=== PATIENT | female | born 2000 | race Caucasian/White ===

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

== ENCOUNTER 2022-03-23 09:48 | Emergency (ER) | payer OTHER, SELFPAY ==
--- NOTE | ~2022-03-23 | CT_ITS ---
EXAMINATION: CT abdomen pelvis w con INDICATION: Diffuse abdominal pain TECHNIQUE: Computed tomographic images of the abdomen and pelvis were obtained after the administrati on of 100 cc of Omnipaque 350 intravenous contrast. The dose-length product (DLP) was 526.56 mGy-cm. Automated exposure control and iterative reconstruction technique were employed. COMPARISON: 10/27/2018 FINDINGS: The lung bases are clear. The heart size is normal. The liver, spleen, pancreas, gallbladde r, and adrenal glands are normal. The kidneys are unremarkable. No pathologically enlarged abdominal or pelvic lymph nodes are identified. There is no free intraperitoneal gas or evidence of bowel obstr uction. IMPRESSION: 1. No CT correlate for the patient's symptoms. Reviewed, dictated and finalized at location A.
[2022-03-23 09:55] VITALS: BP 146/92; PULSE 104; RESP 105; TEMP 36.9; O2SAT 100
[2022-03-23 10:18] LABS: Basophils Absolute Auto 0.1 K/mm3 (0.0-0.1); Basophils Percent Auto 0.8 % (0.2-1.2); Eosinophils Absolute Auto 0.7 K/mm3 (0-0.3); Eosinophils Percent Auto 5.6 % (0-4.4); Hematocrit 42.4 % (37.0-47.0); Hemoglobin 13.9 g/dL (12.0-15.0); Immature Granulocyte Absolute 0.12 K/mm3 (0.00-0.031); Immature Granulocyte Percent A 0.9 % (0-0.5); Lymphocytes Absolute Auto 2.01 K/mm3 (0.9-3.2); Lymphocytes Percent Auto 15.6 % (18.3-44.2); Mean Corpuscular HGB Conc 32.8 g/dl (32-36); Mean Corpuscular Volume 88.3 fl (80-100); Mean Platelet Volume 8.6 fl (7.4-10.4); Monocytes Absolute Auto 1.5 K/mm3 (0.1-0.6); Monocytes Percent Auto 11.7 % (2.6-8.5); Neutrophils Absolute Auto 8.4 K/mm3 (1.3-6.7); Neutrophils Percent Auto 65.4 % (45.5-73.1); Platelet Count Result 371 k/mm3 (150-375); Red Cell Distribution Width 12.6 % (11.5-14.5); White Blood Count 12.9 K/mm3 (4.5-10.0)
[2022-03-23 10:19] LABS: Appearance Urine Clear (Clear); Bilirubin Urine Negative (Negative); Blood Urine 1+ (Negative); Glucose Urine UA Negative (Negative); Ketones Urine Negative (Negative); Leukocyte Esterase Ur Negative LEU/UL (Negative); Nitrate Urine Negative (Negative); Protein Urine Negative (Negative); Specific Grav Ur 1.015 (1.001-1.035); Urobilinogen Urine 0.2 mg/dL (<2.0); pH Urine 5.5 (5.0-9.0)
[2022-03-23 10:23] LABS: Add Urine Microscopic? YES; Color Urine Light Yellow (Yellow)
[2022-03-23 10:32] LABS: Bacteria Urine Trace /hpf; Mucus Urine Rare /lpf; Squamous Epithelial Cell Urine Few /hpf (Few); WBC Urine 0-3 /hpf
[2022-03-23 10:44] LABS: Alanine Aminotransferase 27 U/L (6-35); Albumin Level 4.5 g/dL (3.5-5.1); Alkaline Phosphatase 49 U/L (38-126); Anion Gap 14 mmol/L (8-16); Aspartate Amino Transferase 25 U/L (14-36); Bilirubin,Total 0.3 mg/dL (0.2-1.3); Blood Urea Nitrogen 10 mg/dL (7-17); Calcium 8.9 mg/dL (8.4-10.2); Carbon Dioxide 23 mmol/L (22-30); Chloride 103 mmol/L (98-107); Estimated CRCL calculation 109 ml/min; Estimated Glomerular Filt Rate > 60; Glucose 97 mg/dL (65-110); Lipase 20 U/L (23-300); Potassium 4.5 mmol/L (3.4-5.0); Sodium 140 mmol/L (137-145)
--- NOTE | 2022-03-23 10:56 | ED.ABDPAIN ---
HPI - Abdominal Pain General Chief Complaint: Abdominal Pain Stated Complaint: abd pain Time Seen by Provider: 03/23/22 10:17 History of Present Illness HPI narrative: 21-year-old female presents the emergency room for evaluation of diffuse abdominal pain that radiates into both flanks. Patient describes the pain as bloating and is associated with nausea. Patient has chronic back pain, she states this makes it difficult for her to sit down and go to the restroom. Admits to frequent constipation, which she has been taking a half a teaspoon of MiraLAX for daily for the past few days. Patient admits to frequent small bowel movements that are nonmelanotic and no diarrhea. Related Data Home Medications Medication Instructions Recorded Confirmed omeprazole 20 mg tablet,delayed 20 mg PO DAILY 12/08/19 03/18/22 release ondansetron 4 mg disintegrating 12/08/19 03/18/22 tablet sulfamethoxazole 800 12/08/19 03/18/22 mg-trimethoprim 160 mg tablet Allergies Allergy/AdvReac Type Severity Reaction Status Date / Time No Known Allergies Allergy Verified 03/23/22 09:58 Review of Systems Review of Systems: CONSTITUTIONAL: Denies fever, chills, or sweats. EYES: Denies visual changes, redness, or discharge. ENT: Denies rhinorrhea, congestion, sore throat, or otalgia. CARDIOVASCULAR: Denies chest pain, palpitations, or edema. RESPIRATORY: Denies cough or dyspnea. GASTROINTESTINAL: Reports abdominal pain, nausea GENITOURINARY: Denies dysuria or hematuria. SKIN: Denies rash or itching. MUSCULOSKELETAL: Denies back pain, joint pain, or myalgia. NEUROLOGIC: Denies headache, numbness, dizziness, or weakness. PSYCHIATRIC: Denies anxiety or depression. [facility] Past Medical History Medical History History of depression History of gastroesophageal reflux (GERD) Surgical History Surgical History History of lumbosacral spine surgery 2017 - herniated disc History of orthopedic surgery Social History Social History Smoking status: Current every day smoker Substance use type: marijuana Gender identity (if verbalized by the patient): Female Exam Narrative: GENERAL: Well-appearing, well-nourished, no physical limitations, and in no acute distress. HEAD: Normocephalic, atraumatic. EYES: Conjunctivae normal, PERRLA and EOMI. CHEST: Clear to auscultation. No respiratory distress. No wheezes rales or rhonchi. HEART: Regular rate and rhythm. No murmur heard. Normal peripheral pulses. ABDOMEN: Soft, diffuse tenderness, nondistended, normal active bowel sounds. BACK: No CVA tenderness; No cervical/thoracic/lumbar tenderness, step-offs, bony abnormality; FROM EXTREMITIES: Normal range of motion. No edema. No clubbing or cyanosis SKIN: Warm, dry, no rash. No noted wounds NEURO: No focal deficits. Alert and oriented x3. MAEW. CN's II-XI intact bilaterally, normal gait PSYCH: Cooperative. Normal mood and affect. Course Vital Signs Vital signs: Vital Signs Temperature 36.9 C 03/23/22 09:55 Pulse Rate 104 H 03/23/22 09:55 Respiratory Rate 105 H 03/23/22 09:55 Blood Pressure 146/92 H 03/23/22 09:55 Pulse Oximetry 100 03/23/22 09:55 Oxygen Delivery Room Air 03/23/22 09:55 Temperature 36.9 C 03/23/22 09:55 Pulse Rate 104 H 03/23/22 09:55 Respiratory Rate 105 H 03/23/22 09:55 Blood Pressure 146/92 H 03/23/22 09:55 Pulse Oximetry 100 03/23/22 09:55 Oxygen Delivery Room Air 03/23/22 09:55 MDM - Abdominal Pain MDM Narrative Medical decision making narrative: 21-year-old female presented emergency room with multiple complaints. Patient is complaining of low back pain, that is chronic. This is preventing her from sitting and standing with. Patient states that she is not wanting to sit down to go to the restroom because of t
[2022-03-23] MEDS: ONDANSETRON INJ 4 MG/2 ML VIAL IV PUSH (10:59)
[2022-03-23] MEDS: SODIUM CHLORIDE 0.9% IV 1,000 ML 999 ML IV CONT (10:59)
[2022-03-23 12:54] VITALS: BP 165/80; PULSE 95; RESP 18; O2SAT 100
[2022-03-23 13:16] LABS: Thyroid Stimulating Hormone 0.877 uIU/mL (0.465-4.680)
== END 2022-03-23 12:55 | disposition home or self-care (01) ==
PROVIDERS: Emergency Provider Nurse Practitioner Family; PCP Family Medicine Adolescent Medicine
DX: K59.00 Constipation, unspecified (principal); M54.50 Low back pain, unspecified; G89.29 Other chronic pain; K21.9 Gastro-esophageal reflux disease without esophagitis; F17.200 Nicotine dependence, unspecified, uncomplicated
CPT/HCPCS: 36415; 74177; 80053; 81001; 81025; 83690; 84443; 85025; 96361; 96374; 99284; J2405; J7030; Q9967

== ENCOUNTER → 2022-03-30 09:08 | Outpatient (CLI) | payer OTHER, SELFPAY ==
--- NOTE | ~2022-03-30 | MR_ITS ---
EXAMINATION: MR lumbar spine wo con DATE: 03/30/2022 10:00 INDICATION: Back pain. TECHNIQUE: Magnetic resonance imaging (MRI) of the lumbar spine was performed without intravenous con trast. Sequences included sagittal T2-weighted FSE, sagittal T2-weighted FS FSE, sagittal T1-weighted FSE, and axial T2-weighted FSE. COMPARISON: Lumbar spine MRI 02/21/17 FINDINGS: Bone alignment is normal. There is mild chronic anterior wedging of T11 and T12 vertebral b odies. There is mildly decreased disc height at L4-L5. The distal spinal cord signal intensity is nor mal. The conus medullaris is at T12. The following disc levels are specifically discussed: L1-L2: The disc does not extend beyond the endplate margin. There is no facet joint osteoarthritis. T here is no neural foraminal stenosis. There is no central canal stenosis. L2-L3: The disc does not extend beyond the endplate margin. There is no facet joint osteoarthritis. T here is no neural foraminal stenosis. There is no central canal stenosis. L3-L4: The disc does not extend beyond the endplate margin. There is severe right and moderate left f acet joint osteoarthritis. There is no neural foraminal stenosis. There is no central canal stenosis. There are changes of posterior decompression. L4-L5: The disc is bulging with superimposed right central extrusion. There is mild right facet joint osteoarthritis. There is mild bilateral neural foraminal stenosis. There is mild central canal steno sis. There are changes of posterior decompression. L5-S1: There is a left foraminal protrusion with annular fissure. There is mild bilateral facet joint osteoarthritis. There is mild left neural foraminal stenosis. There is no central canal stenosis. IMPRESSION: 1. Mild lumbar spondylosis, improved from 02/21/2017. Reviewed, dictated and finalized at location A.
== END ==
PROVIDERS: PCP Physician Assistant; Visit Provider Physician Assistant
DX: M47.896 Other spondylosis, lumbar region (principal)
CPT/HCPCS: 72148

== ENCOUNTER 2022-06-12 11:34 | Outpatient (CLI) | payer OTHER, SELFPAY ==
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
== END 2022-06-12 11:35 ==
PROVIDERS: PCP Family Medicine Adolescent Medicine; Visit Provider Physician Assistant
DX: M25.562 Pain in left knee (principal)
CPT/HCPCS: 73721

== ENCOUNTER 2022-09-08 06:14 | Emergency (ER) | payer BC, SELFPAY ==
[2022-09-08] VITALS (19 sets, daily range): BP systolic 130–168; BP diastolic 70–123; PULSE 64–101; RESP 11–33; TEMP 36.5; O2SAT 98–100
--- NOTE | ~2022-09-08 | CT_ITS ---
EXAMINATION: CTA chest PE protocol DATE: 09/08/2022 09:33 INDICATION: Shortness of breath. TECHNIQUE: Computed tomography angiography (CTA) of the chest was performed with 100 mL Omnipaque-350 intravenous contrast timed to evaluate the pulmonary arteries. Coronal maximum intensity projection 3D-reconstructions were created by the technologist. Automated exposure control and iterative reconst ruction technique were employed. The dose-length product was 459.32 mGy-cm. COMPARISON: CT abdomen pelvis 03/23/2022 FINDINGS: The lungs demonstrate mild atelectasis. No pleural effusion. The heart size is normal. No p ericardial effusion. There is no pulmonary embolus. There is thoracic dextrocurvature and mild spondy losis. IMPRESSION: 1. No pulmonary embolus. Reviewed, dictated and finalized at location A. IMPRESSION: 1. No pulmonary embolus.
--- NOTE | ~2022-09-08 | US_ITS ---
Limited Abdominal Sonogram: Real-time sonographic imaging of the right upper quadrant was performed. Clinical History: Right upper quadrant pain Findings: The liver appears normal with no evidence of mass lesion or bile duct dilatation. Main por asha vein demonstrates normal direction of flow. The gallbladder is well distended, and appears normal with no evidence of gallstone or wall thickening. The common bile duct measures 4 mm. The visualize d pancreas, aorta, and IVC are unremarkable. Impression: No significant abnormality seen. Reviewed, dictated and finalized at location M. Impression: No significant abnormality seen.
--- NOTE | 2022-09-08 06:45 | PC.NURSE ---
pt c/o r sided back/flank pain that radiates under r breast x 5 days but worse today. states pain is worse with deep breath and movement. states she smoked weed to relief the pain but it didn't work. denies any problems with urination or n/v. denies sob
[2022-09-08 07:27] LABS: Appearance Urine Clear (Clear); Bacteria Urine None Seen /hpf; Bilirubin Urine Negative (Negative); Blood Urine Negative (Negative); Color Urine Yellow (Yellow); Glucose Urine UA Negative (Negative); Ketones Urine Negative (Negative); Leukocyte Esterase Ur 1+ LEU/UL (Negative); Nitrate Urine Negative (Negative); Non Pathogenic Casts 0-2; Protein Urine Negative (Negative); RBC Urine 0-2 /hpf (0-2); Specific Grav Ur 1.011 (1.001-1.035); Squamous Epithelial Cell Urine None seen /hpf (Few); Urobilinogen Urine 0.2 mg/dL (<2.0); pH Urine 7.5 (5.0-9.0)
[2022-09-08 07:49] LABS: Add Urine Microscopic? YES
--- NOTE | 2022-09-08 07:51 | ED.GENADULT ---
HPI - General Adult General Chief complaint: Back Pain/Injury Stated complaint: right sided flank pain x 5 days Time Seen by Provider: 09/08/22 06:59 History of Present Illness HPI narrative: Patient is a 21-year-old female who presents ER with abdominal pain and back pain for 5 days. It is located in the epigastrium and right upper quadrant moves to her right back. It is worse with eating, deep breath, and physical movements. No fevers or chills or sweats. No vomiting. No history of gallbladder disease. No history of blood clots. No recent lower extremity swelling. No hemoptysis or exertional dyspnea. No improvement with [id number] pain medication. Related Data Home Medications Medication Instructions Recorded Confirmed omeprazole 20 mg tablet,delayed 20 mg PO DAILY 12/08/19 07/26/22 release ondansetron 4 mg disintegrating 12/08/19 07/26/22 tablet polyethylene glycol 3350 17 gram 17 g PO DAILY 05/31/22 07/26/22 oral powder packet (Miralax) Allergies Allergy/AdvReac Type Severity Reaction Status Date / Time latex Allergy Mild Rash Verified 09/08/22 06:26 Review of Systems Review of Systems: All systems reviewed & are unremarkable except as noted in HPI and below Constitutional: Constitutional: Denies chills, Denies fatigue and Denies fever(s) ENT: Denies nasal congestion and Denies sore throat Cardiovascular: Cardiovascular: Denies chest pain and Denies rapid heart rate Respiratory: Respiratory: Denies cough and Denies dyspnea Gastrointestinal: Gastrointestinal: Reports abdominal pain, Denies diarrhea, Denies nausea and Denies vomiting Genitourinary: Genitourinary: Denies nocturia, Denies dysuria and Reports flank pain [facility] Past Medical History Medical History History of depression History of gastroesophageal reflux (GERD) Surgical History Surgical History History of lumbosacral spine surgery 2017 - herniated disc History of orthopedic surgery Family History Family History (Updated 08/06/22 @ 08:10 by Tori Arevalo MA) Other Arthritis Asthma Depression Heart disease High cholesterol Hypertension Kidney disorder Social History Social History (Reviewed 07/26/22 @ 14:14 by VINICIUS Echols Smoking status: Current every day smoker Substance use type: marijuana Gender identity (if verbalized by the patient): Female Exam Narrative: GENERAL: Uncomfortable-appearing, well-nourished, and in no acute distress. HEAD: Normocephalic, atraumatic. EYES: PERRL and EOMI. ENT: Mucous membranes moist. CHEST: Clear to auscultation. No respiratory distress. HEART: Regular rate and rhythm. Normal peripheral pulses. ABDOMEN: Soft, epigastric and right upper quadrant tenderness with guarding, nondistended. EXTREMITIES: Normal range of motion. No edema. SKIN: Warm, dry, no rash. NEURO: Alert and oriented x3. PSYCH: Normal mood and affect. Course Course Emergency Course: Patient received morphine. Improved her epigastric discomfort and she no longer has tenderness in her abdomen on exam. She was reporting right chest wall discomfort in the mid axillary line. There is no evidence of pneumonia or PE. Patient could have pleurisy or just musculoskeletal discomfort. She will be treated with anti-inflammatories and muscle relaxers. Recommend follow-up with PCP. Vital Signs Vital signs: Vital Signs Temperature 97.7 F 09/08/22 06:20 Pulse Rate 85 09/08/22 06:20 Respiratory Rate 16 09/08/22 06:20 Blood Pressure 130/93 H 09/08/22 06:20 Pulse Oximetry 100 09/08/22 06:20 Oxygen Delivery Room Air 09/08/22 06:20 Temperature 97.7 F 09/08/22 06:20 Pulse Rate 70 09/08/22 09:54 Respiratory Rate 16 09/08/22 09:54 Blood Pressure 168/118 H 09/08/22 09:54 Pulse Oximetry 100 09/08/22 09:54 Oxygen Delivery Room Air 0
[2022-09-08] MEDS: ONDANSETRON INJ 4 MG/2 ML VIAL IV PUSH (08:17)
[2022-09-08] MEDS: MORPHINE SULFATE (*CRX) 4 MG/ML INJ IV PUSH (08:19)
[2022-09-08] MEDS: SODIUM CHLORIDE 0.9% IV 1,000 ML 999 ML IV CONT (08:19)
[2022-09-08 08:27] LABS: Basophils Absolute Auto 0.1 K/mm3 (0.0-0.1); Basophils Percent Auto 1.1 % (0.2-1.2); Eosinophils Absolute Auto 0.8 K/mm3 (0-0.3); Eosinophils Percent Auto 6.4 % (0-4.4); Hematocrit 39.1 % (37.0-47.0); Hemoglobin 12.7 g/dL (12.0-15.0); Immature Granulocyte Absolute 0.08 K/mm3 (0.00-0.031); Immature Granulocyte Percent A 0.7 % (0-0.5); Lymphocytes Absolute Auto 3.25 K/mm3 (0.9-3.2); Lymphocytes Percent Auto 27.5 % (18.3-44.2); Mean Corpuscular HGB Conc 32.5 g/dl (32-36); Mean Corpuscular Hemoglobin 29.5 pg (26-34); Mean Corpuscular Volume 90.9 fl (80-100); Mean Platelet Volume 8.5 fl (7.4-10.4); Monocytes Absolute Auto 1.3 K/mm3 (0.1-0.6); Monocytes Percent Auto 10.6 % (2.6-8.5); Neutrophils Absolute Auto 6.3 K/mm3 (1.3-6.7); Neutrophils Percent Auto 53.7 % (45.5-73.1); Platelet Count Result 397 k/mm3 (150-375); White Blood Count 11.8 K/mm3 (4.5-10.0)
[2022-09-08 08:42] LABS: Alanine Aminotransferase 24 U/L (6-35); Albumin Level 4.6 g/dL (3.5-5.1); Alkaline Phosphatase 52 U/L (38-126); Anion Gap 5 mmol/L (8-16); Aspartate Amino Transferase 25 U/L (14-36); Bilirubin,Total 0.9 mg/dL (0.2-1.3); Blood Urea Nitrogen 8 mg/dL (7-17); Calcium 9.1 mg/dL (8.4-10.2); Carbon Dioxide 27 mmol/L (22-30); Chloride 104 mmol/L (98-107); Estimated CRCL calculation 131 ml/min; Estimated Glomerular Filt Rate > 60; Glucose 96 mg/dL (65-110); Lipase 25 U/L (23-300); Potassium 4.1 mmol/L (3.4-5.0); Sodium 136 mmol/L (137-145)
[2022-09-08 08:48] LABS: INR 1.1; Partial Thromboplastin Time 25.9 SECONDS (22.3-36.8); Prothrombin Time 13.7 Seconds (11.1-14.7)
[2022-09-08 09:13] LABS: Pregnancy On Board Control Positive; Urine Pregnancy Test Negative
[2022-09-08] MEDS: KETOROLAC 30 MG/ML VIAL (*BKC) IV PUSH (10:11)
== END 2022-09-08 10:18 | disposition home or self-care (01) ==
PROVIDERS: Emergency Medicine; Emergency Provider Emergency Medicine; PCP Family Medicine Adolescent Medicine
DX: R07.89 Other chest pain (principal); K21.9 Gastro-esophageal reflux disease without esophagitis; F17.200 Nicotine dependence, unspecified, uncomplicated
CPT/HCPCS: 36415; 71275; 76705; 80053; 81001; 81025; 83690; 85025; 85610; 85730; 87086; 87088; 96361; 96374; 96375; 99284; J1885; J2270; J2405; J7030; Q9967

== ENCOUNTER 2023-04-26 12:50 | Outpatient (CLI) | payer BC, SELFPAY ==
--- NOTE | ~2023-04-26 | MR_ITS ---
EXAMINATION: MR knee LT wo con DATE: 04/26/2023 13:18 INDICATION: Left knee pain. TECHNIQUE: Magnetic resonance imaging (MRI) of the left knee was performed without intravenous contra st. Sequences included axial PD-weighted FS FSE, coronal PD-weighted FSE and PD-weighted FS FSE, sagi ttal PD-weighted FSE, and sagittal T2-weighted FS FSE. COMPARISON: Left knee radiographs 07/26/2022, MRI 06/12/2022 FINDINGS: Medial compartment: Medial meniscus is normal. Medial compartment cartilage is normal. Lateral compartment: Lateral meniscus is normal. Lateral compartment cartilage is normal. Patellofemoral compartment: Patellar cartilage is normal. Trochlear cartilage is normal. Ligaments and tendons: The anterior and posterior cruciate ligaments are normal. Medial collateral ligament and lateral francisco ateral ligament complex are normal. The extensor mechanism is normal. Fluid: There is a small knee joint effusion. IMPRESSION: 1. Small knee joint effusion. Reviewed, dictated and finalized at location E.
== END 2023-04-26 12:51 ==
LOC: MICIMG 12:51
PROVIDERS: PCP Orthopaedic Surgery; Visit Provider Nurse Practitioner Family
DX: M25.462 Effusion, left knee (principal)
CPT/HCPCS: 73721

== ENCOUNTER 2023-12-15 07:30 | Outpatient (CLI) | payer BC, SELFPAY ==
--- NOTE | 2023-12-15 12:53 | WPDPFTINT ---
PFT Procedure Performed PFT Procedure Performed Spirometry with Pre/Post Bronchodilator Plethysmography (Lung Vol) Diffusing Cap (DLCO) Flow Vol Loop PFT Interpretation Lung volumes were measured with the body plethysmography method. Lung volumes are unremarkable. Spirometry showed diminished expiratory flow rates and a diminished FEV1 to FVC ratio of 50%, indicative of obstructive airway disease. Following administration of a bronchodilator there was significant increase in expiratory flow rates. Lung diffusion capacity is within the normal range at 86% predicted. The flow volume loop is consistent with asthma. Impression: Moderate obstructive airway disease with significant response to bronchodilators on this testing. Lung diffusion capacity within the normal range.
== END 2023-12-15 07:31 | disposition home or self-care (01) ==
LOC: ANHPFT 07:31
PROVIDERS: PCP Family Medicine Adolescent Medicine; Visit Provider Nurse Practitioner Family
DX: R06.2 Wheezing (principal); R94.2 Abnormal results of pulmonary function studies
CPT/HCPCS: 94060; 94726; 94729

== ENCOUNTER 2025-02-25 23:54 | Emergency (ER) | payer SELFPAY ==
--- OUTSIDE RECORDS SUMMARY | 2025-02-25 23:56 | XMS_ITS | Clinical Summary ---
Author Organization [facility] Address [address] [place] [id number] Care Team Providers Care Binitrotoluene Operator Name Role Phone Reid Langston MD Primary Care Provider [phone] Allergies Active Allergy Reactions Criticality Noted Date Comments Latex Rash Medium 01/30/2019 Medications naproxen (NAPROSYN) 500 MG tablet Take 1 tablet (500 mg total) by mouth 2 (two) times daily with meals. 20 tablet 05/21/2022 Active Social History Tobacco Use Types Packs/Day Years Used Date Smoking Tobacco: Never Smokeless Tobacco: Never Alcohol Use Standard Drinks/Week Comments Not Currently 0 (1 standard drink = 0.6 oz pur e alcohol) Comments No Sex and Gender Information Value Date Recorded Sex Assigned at Not on file Legal Sex Female 3:07 PM CDT Gender Identity Not on file Sexual Orientation Not on file Last Filed Vital Signs Vital Sign Reading Time Taken Comments Blood Pressure 138/71 12/21/2023 11:53 PM CDT Pulse 96 12/21/2023 11:53 PM CDT Temperature 36.2 C (97.1 F) 12/21/2023 8:05 PM CDT Respiratory Rate 18 12/21/2023 11:53 PM CDT Oxygen Saturation 97% 12/21/2023 11:53 PM CDT Inhaled Oxygen Concentration - - Weight 96.6 kg (213 lb) 12/21/2023 8:05 PM CDT Height 160 cm (5' 3) 12/21/2023 8:03 PM CDT Body Mass Index 37.73 12/21/2023 8:03 PM CDT Plan of Treatment Health Maintenance Due Date Last Done Comments Cervical Cancer Screening Pap Smear (Age 21 to 29) Every 3 Years 2001 Cervical Cancer Screening 2001 Annual Physical 2004 DTaP, Tdap and Td Vaccines (6 - Tdap) 2012 01/27/2007, 07/08/2003, 06/18/2002, Additional history exists HPV Vaccines (1 - 3-dose series) 2016 Meningococcal B Vaccine (1 of 2 - Standard) 2017 Hepatitis C 12/17/2019 COVID-19 Vaccine ( - season) 2024 Hepatitis B Vaccines Completed 09/18/2002, 01/15/2002, 2001 Meningococcal Vaccine Aged Out No di serge eligible based on patient's age to complete this topic Pneumococcal Vaccine: Pediatrics (0 to 5 Years) and At-Risk Patients (6 to 49 Years) Aged Out No longer eligible based on patient's age to complete this topic RSV Immunizations Under 20 Months Aged Out No longer eligible based on patient's age to complete this topic Insurance [employer] Care Teams Binitrotoluene Operator Relationship Specialty Start Date End Date Reid Langston MD [address] [place] [id number] PCP - General [facility]ILY [facility] 03/21/19
[2025-02-26] VITALS: BP 139/88; PULSE 93; RESP 18; TEMP 36.7; O2SAT 99
--- NOTE | 2025-02-26 00:29 | ED.BACK ---
HPI - Back Pain/Injury General Chief Complaint: Back Pain/Injury Stated Complaint: back pain Time Seen by Provider: 02/26/25 00:03 History of Present Illness HPI Narrative: 24-year-old female with history of chronic back pain presents emergency department for acute on chronic back pain for the past 3-4 days. Patient states she has been working longer hours at [employer] and has been standing for long periods of time while working which colbert flared her back pain. She denies any recent injury or trauma. She states the pain is throughout her lower back and radiates to the lateral aspect of her hips and into her groin as well as down both of her legs. She describes it as a muscle spasm. She reports tingling in both of her legs. She states the pain is worse with movement. She denies saddle anesthesia, bowel or bladder incontinence, urinary retention, abdominal pain, fever, IV drug use, use of immunosuppressants or steroids. She notes that she had a diskectomy performed in 2017 at [facility]. She states that she has been in and out of pain management and PT for several years due to her chronic back pain. She has not been to PT in about 8 months to 1 year and has not seen pain management since 2019. She states she tried ibuprofen with minimal improvement in pain. Denies possibility of . Related Data Allergies Allergy/AdvReac Type Severity Reaction Status Date / Time latex Allergy Mild Rash Verified 10/18/24 07:36 Review of Systems Review of Systems: All systems reviewed & are unremarkable except as noted in HPI and below PMFSH Past Medical History Medical History Contusion of left knee Left acute otitis media Acute bronchitis Viral syndrome Right-sided chest wall pain Pain of left knee after injury Chronic low back pain with right-sided sciatica Left knee pain Chronic low back pain History of depression History of gastroesophageal reflux (GERD) Surgical History Surgical History History of lumbosacral spine surgery 2017 - herniated disc History of orthopedic surgery Family History Family History Other Arthritis Asthma Depression Heart disease High cholesterol Hypertension Kidney disorder Social History Social History Smoking status: Current every day smoker Tobacco type: e-cigarettes/vaping Substance use type: marijuana Lack of Transportation: No Lack of Food: Never True Current Housing: I Have Housing Concerned About Future Housing: No Difficulty Paying Gas/Electric Bills: No Difficulty Paying for Meds: No Currently Unemployed: No Education: High School Diploma/GED Difficulty w/ Childcare or Family Care: No Gender identity (if verbalized by the patient): Female Exam Narrative: GENERAL: Well-appearing, well-nourished, and in no acute distress. HEAD: Normocephalic, atraumatic. EYES: PERRLA and EOMI. ENT: Nares clear, no rhinorrhea or epistaxis. Mucous membranes moist. NECK: Supple. BACK: Diffuse tenderness throughout the low back including the lumbar spine and paraspinous muscles. Well-healed surgical scar with no overlying skin changes or erythema, no warmth. Positive straight leg raise bilaterally. CHEST: Clear to auscultation. No respiratory distress. HEART: Regular rate and rhythm. No murmur heard. Normal peripheral pulses. EXTREMITIES: Normal range of motion. No edema. Dorsiflexion and plantar flexion 5/5, EHL 5/5. Sensation intact throughout. No saddle anesthesia. SKIN: Warm, dry, no rash. NEURO: No focal deficits. Alert and oriented x3 Course Vital Signs Vital signs: Vital Signs Temperature 98.1 F 02/26/25 00:00 Pulse Rate 93 02/26/25 00:00 Respiratory Rate 18 02/26/25 00:00 Blood Pressure 139/88 02/26/25 00:00 Pulse Oximetry 99 02/26/25 00:00 Oxygen Delivery Room Air 02/26/25 00:00 Temperature 98.1 F 02/26/25 00:00 Pulse Rate 99 02/26/25 01:36 Respiratory Rate 20 02/26/25 01:36 Blood Pressure 143/98 H 02/26/25 01:36 Pulse Oximetry 99 02/26/25 01:36 Oxygen Delivery Room Air 02/26/25 00:00 MDM - Back Pain/Injury MDM Narrative Medical decision making narrative: 24-year-old female with history of chronic back pain presents emergency department for acute on chronic back pain. No recent injury or trauma. Triage vitals are stable. Patient is afebrile and nontoxic appearing. Exam is significant for diffuse lower back pain and positive straight leg raise bilaterally. Patient is otherwise neurovascularly intact. Presentation not consistent with cauda equina. No fevers, IVDU, use of steroids or immunosuppressants. No abdominal pain or urinary complaints. No red flag back pain signs. Presentation is consistent with acute on chronic back pain of MSK etiology, likely exacerbated by long hours of work standing on her feet. Will trial Toradol, Decadron, lidocaine patch, Valium and gabapentin in the ED and re-evaluate. Patient re-evaluated. Still having pain. Was given Cannon. Will discharge her home with scripts for Flexeril, lidocaine, steroids, NSAIDs, Tylenol and have her follow-up closely with her PCP. Discussed that she likes lead needs to resume pain management and PT. She was given strict ED return precautions. She is agreeable with the plan verbalized understanding. Discharged in stable condition. Discharge Plan Discharge Clinical Impression: Low back pain Qualifiers: Chronicity: chronic Back pain laterality: bilateral Sciatica presence: with sciatica Sciatica laterality: bilateral sciatica Qualified Code(s): M54.42 - Lumbago with sciatica, left side Patient Disposition: Home Condition: Stable Instructions: Antibiotic Form, Acute Low Back Pain (ED), Lower Back Exercises (ED) Additional Instructions: Please make sure you were doing exercises daily as discussed in taking the medications as directed. Follow-up closely with her primary care provider. You may need to be referred to pain management and physical therapy by her PCP. Return to the emergency department if you develop numbness in your groin, lose control of your bowel or bladder, develop a fever or other concerning symptoms. Patient Language: Nicaraguan Prescriptions: New cyclobenzaprine 10 mg tablet 10 mg PO TID PRN (Reason: muscle spasm) Qty: 14 0RF ibuprofen 800 mg tablet 800 mg PO TID PRN (Reason: pain) Qty: 20 0RF prednisone 20 mg tablet 40 mg PO DAILY Qty: 10 0RF lidocaine 1.8 % adhesive patch,medicated 1 patch topical DAILY Qty: 30 0RF Rx Instructions: leave on most painful area for up to 12 hrs. do not use more than 1 patch in 24 hours. acetaminophen 500 mg capsule 1,000 mg PO Q6H PRN (Reason: pain) Qty: 20 0RF No Action gabapentin 300 mg capsule 900 mg PO QHS Qty: 90 3RF hydroxyzine HCl 25 mg tablet See Rx Instructions PO BID PRN (Reason: anxiety) Qty: 30 0RF Rx Instructions: 1/2-1 tab orally twice a day PRN; naproxen 500 mg tablet 500 mg PO BID PRN (Reason: pain) Qty: 30 0RF Pulmicort Flexhaler 90 mcg/actuation aerosol powdr breath activated 1 inh inhalation Q12H Qty: 1 0RF albuterol sulfate 90 mcg/actuation HFA aerosol inhaler See Rx Instructions .ROUTE .COMPLEX Qty: 9 1RF Dose Instruction: INHALE 1 PUFF BY MOUTH EVERY 4 HOURS NEEDED FOR SHORTNESS OF BREATH AND FOR WHEEZING Rx Instructions: INHALE 1 PUFF BY MOUTH EVERY 4 HOURS NEEDED FOR SHORTNESS OF BREATH AND FOR WHEEZING Follow-up/Referrals: Reid Langston MD [Primary Care Provider, Family Practice]
[2025-02-26] MEDS: diazePAM INJ (*CRX) 10 MG/2 ML SYRINGE 5 MG IM (00:36)
[2025-02-26] MEDS: LIDOCAINE 5% PATCH 1 PATCH TRANSDERM (00:36)
[2025-02-26] MEDS: dexAMETHasone SOD PHOS INJ 10 MG/ML 1 ML VIAL IM (00:37)
[2025-02-26] MEDS: GABAPENTIN 300 MG CAPSULE PO (00:37)
[2025-02-26] MEDS: KETOROLAC 30 MG/ML VIAL (*BKC) IM (00:37)
[2025-02-26] MEDS: HYDROcodone/acetaminophen (*CRX) 5-325 MG TABLET 1 TAB PO (01:35)
[2025-02-26 01:36] VITALS: BP 143/98; PULSE 99; RESP 20; O2SAT 99
== END 2025-02-26 01:39 | disposition home or self-care (01) ==
PROVIDERS: Emergency Provider Physician Assistant; PCP Family Medicine Adolescent Medicine
DX: M54.42 Lumbago with sciatica, left side (principal); F17.290 Nicotine dependence, other tobacco product, uncomplicated; G89.29 Other chronic pain; F32.A Depression, unspecified; K21.9 Gastro-esophageal reflux disease without esophagitis
CPT/HCPCS: 96372; 99284; A9270; J1100; J1885; J3360

== ENCOUNTER → 2025-02-28 16:05 | Outpatient (CLI) | payer SELFPAY ==
--- NOTE | ~2025-02-28 | XR_ITS ---
LUMBAR SPINE INDICATION: Lumbago TECHNIQUE: 3 views lumbar spine COMPARISON: None FINDINGS: No acute fracture, subluxation or dislocation. There is mild chronic wedge shaped appearance to T12. No evidence for spondylolysis or spondylolisthesis. There is mild disc narrowing at L4-5. IMPRESSION: 1: Mild lumbar spondylosis. Reviewed, dictated and finalized at location O. IMPRESSION: 1: Mild lumbar spondylosis.
== END ==
PROVIDERS: PCP Nurse Practitioner Family; Visit Provider Nurse Practitioner Family
DX: M54.41 Lumbago with sciatica, right side (principal); G89.29 Other chronic pain; M47.896 Other spondylosis, lumbar region
CPT/HCPCS: 72100